=== PATIENT | female | born 1970 | race Two or more races ===

== ENCOUNTER 2017-12-17 17:43 | Inpatient (IN) | payer BC ==
[~2017-12-17] VITALS: Ht 170.2 cm; Wt 87.3 kg
[2017-12-17 18:20] LABS: MEAN CORPUSCULAR HEMOGLOBIN 30.1 pg (27.0-34.8); MEAN CORPUSCULAR HGB CONC 34.2 g/dL (32.4-35.8); MEAN CORPUSCULAR VOLUME 88.1 fL (80-100); MEAN PLATELET VOLUME 8.3 fL (7.4-10.4); PLATELET COUNT 311 x10^3/uL (130-400); RED BLOOD COUNT 4.77 x10^6/uL (3.82-5.3); RED CELL DISTRIBUTION WIDTH 12.7 % (9.6-15.2)
[2017-12-17] MEDS ORDERED: MORPHINE SULFATE 4 MG/ML, 1ML ONE (18:21)
[2017-12-17] MEDS ORDERED: ONDANSETRON ODT 4 MG ONE (18:21)
[2017-12-17 18:25] LABS: MICROSCOPIC AUTO
[2017-12-17 18:25] LABS: ALBUMIN 3.7 g/dL (3.4-5.0); CALCIUM 8.8 mg/dL (8.5-10.1); CHLORIDE 102 mmol/L (98-107)
[2017-12-17] MEDS ORDERED: ONDANSETRON ODT 4 MG PO ONE (18:30)
[2017-12-17] MEDS ORDERED: MORPHINE SULFATE 4 MG/ML, 1ML IVPush PRN (18:30)
[2017-12-17 18:31] LABS: CULTURE INDICATED? YES
[2017-12-17 18:31] LABS: ALANINE AMINOTRANSFERASE 43 U/L (12-78); ALKALINE PHOSPHATASE 95 U/L (45-117); BILIRUBIN,TOTAL 0.5 mg/dL (0.2-1.0); CREATININE 0.82 mg/dL (0.55-1.02); TOTAL PROTEIN 7.4 g/dL (6.4-8.2)
[2017-12-17 18:42] LABS: BASOPHILS # (AUTO) 0.02 x10^3/uL (0-0.1); BASOPHILS % (AUTO) 0 % (0-1); EOSINOPHILS # (AUTO) 0.09 x10^3/uL (0-0.4); EOSINOPHILS % (AUTO) 0 % (1-7); LYMPHOCYTES # (AUTO) 1.86 x10^3/uL (1-3.4); LYMPHOCYTES % (AUTO) 9 % (22-44); MD SCAN; MONOCYTES # (AUTO) 0.29 x10^3/uL (0.2-0.8); MONOCYTES % (AUTO) 2 % (2-9); NEUTROPHILS # (AUTO) 17.57 x10^3/uL (1.8-6.8); NEUTROPHILS % (AUTO) 89 % (42-75)
[2017-12-17 18:45] LABS: ANION GAP 13 mmol/L (5-15)
[2017-12-17] MEDS ORDERED: OMNIPAQUE 350 MG/ML, 100ML BOTTLE ONE (19:21)
[2017-12-17] MEDS ORDERED: SODIUM CHLORIDE 0.9% 1,000 ML IV ONE (20:25)
[2017-12-17] MEDS ORDERED: CEFTRIAXONE PMX 1GM/50ML 50 ML IVPB ONE (20:30)
[2017-12-17] MEDS ORDERED: SODIUM CHLORIDE FLUSH 10ML SYR IVF PRN (20:30)
[2017-12-17] MEDS ORDERED: CEFTRIAXONE PMX 1GM/50ML 50 ML ONE (20:34)
[2017-12-17] MEDS ORDERED: [UNRECOGNIZED DRUG - REMARK] (20:49)
[2017-12-17] MEDS ORDERED: METF500T27 PO (20:49)
[2017-12-17 21:50] VITALS: BP 153/89
[2017-12-17] MEDS ORDERED: LABETALOL 5MG/ML, 20ML IVPush PRN (22:30)
[2017-12-17] MEDS ORDERED: hydrALAzine 20 MG/ML, 1ML IVPush PRN (22:30)
[2017-12-17] MEDS ORDERED: morphine SULFATE 10 MG/ML, 1ML IVPush PRN (22:30)
[2017-12-17] MEDS ORDERED: BISACODYL 10 MG SUPP PR PRN (22:30)
[2017-12-17] MEDS ORDERED: CEFTRIAXONE PMX 1GM/50ML 50 ML IV ONE (22:30)
[2017-12-17] MEDS ORDERED: PROMETHAZINE 25 MG/ML, 1ML IM PRN (22:30)
[2017-12-17] MEDS ORDERED: ENALAPRILAT 1.25 MG/ML, 2ML IVPush PRN (22:30)
[2017-12-17] MEDS ORDERED: POLYETHYLENE GLYCOL 17 GM PACKET PO PRN (22:30)
[2017-12-17] MEDS ORDERED: ACETAMINOPHEN 325 MG TABLET PO PRN (22:30)
[2017-12-17] MEDS: HEPARIN 5,000 UNITS/ML, 1ML SQ SCH (22:50)
[2017-12-17] MEDS: SODIUM CHLORIDE 0.9% 1,000 ML IV SCH (22:50)
[2017-12-17 23:10] LABS: FREE T4 (FREE THYROXINE) 0.95 ng/dL (0.76-1.46); THYROID STIMULATING HORMONE 1.22 mIU/L (0.358-3.740)
[2017-12-17 23:29] LABS: HEMOGLOBIN A1C 6.7 % (4.2-6.3)
[2017-12-18 04:23] VITALS: BP 110/58
[2017-12-18 05:19] LABS: BASOPHILS # (AUTO) 0.03 x10^3/uL (0-0.1); BASOPHILS % (AUTO) 0 % (0-1); EOSINOPHILS # (AUTO) 0.12 x10^3/uL (0-0.4); EOSINOPHILS % (AUTO) 2 % (1-7); LYMPHOCYTES # (AUTO) 1.91 x10^3/uL (1-3.4); LYMPHOCYTES % (AUTO) 22 % (22-44); MD NO; MEAN CORPUSCULAR HEMOGLOBIN 30.4 pg (27.0-34.8); MEAN CORPUSCULAR HGB CONC 34.1 g/dL (32.4-35.8); MEAN CORPUSCULAR VOLUME 88.9 fL (80-100); MEAN PLATELET VOLUME 8.3 fL (7.4-10.4); MONOCYTES # (AUTO) 0.44 x10^3/uL (0.2-0.8); MONOCYTES % (AUTO) 5 % (2-9); NEUTROPHILS % (AUTO) 71 % (42-75); PLATELET COUNT 258 x10^3/uL (130-400); RED BLOOD COUNT 4.36 x10^6/uL (3.82-5.3); RED CELL DISTRIBUTION WIDTH 12.8 % (9.6-15.2)
[2017-12-18 05:34] LABS: ANION GAP 8 mmol/L (5-15); CALCIUM 8.3 mg/dL (8.5-10.1); CHLORIDE 105 mmol/L (98-107)
[2017-12-18 05:40] LABS: ALANINE AMINOTRANSFERASE 31 U/L (12-78); ALKALINE PHOSPHATASE 66 U/L (45-117); BILIRUBIN,TOTAL 0.4 mg/dL (0.2-1.0); CHOL/HDL RATIO 8.7; CHOLESTEROL, TOTAL 217 mg/dL (140-239); CREATININE 0.67 mg/dL (0.55-1.02); HDL CHOL % 12 % (28-40); HDL CHOLESTEROL (DIRECT) 25 mg/dL (40-60); TOTAL PROTEIN 6.4 g/dL (6.4-8.2); TRIGLYCERIDES 580 mg/dL (50-200)
[2017-12-18] MEDS: HEPARIN 5,000 UNITS/ML, 1ML SQ SCH ×2 (06:18→14:30)
[2017-12-18] MEDS: SODIUM CHLORIDE 0.9% 1,000 ML IV SCH (06:18)
[2017-12-18] MEDS: INSULIN LISPRO 100 UNITS/ML, PEN SQ-INSULIN SCH ×3 (06:21→16:00)
[2017-12-18 07:41] VITALS: BP 124/69
[2017-12-18] MEDS: SENNA/DOCUSATE TABLET PO SCH (08:51)
[2017-12-18] MEDS: OMEPRAZOLE 20 MG CAPSULE.DR PO SCH (08:51)
[2017-12-18] MEDS ORDERED: MAGNESIUM SULFATE PMX 2GM/50ML 50 ML IV ONE (10:00)
[2017-12-18 15:29] VITALS: BP 134/76
[2017-12-18] MEDS ORDERED: CEFTRIAXONE PMX 2GM/50ML 50 ML IV SCH (19:00)
[2017-12-18] MEDS ORDERED: CEFTRIAXONE 2 GM in DEXTROSE 5% 50 ML IV SCH (19:00)
[2017-12-18 20:30] VITALS: BP 134/80
[2017-12-19] MEDS: HEPARIN 5,000 UNITS/ML, 1ML SQ SCH ×3 (00:02→14:30)
[2017-12-19] MEDS: INSULIN LISPRO 100 UNITS/ML, PEN SQ-INSULIN SCH ×3 (01:03→11:00)
[2017-12-19 02:20] VITALS: BP 109/66
[2017-12-19 05:21] LABS: ALBUMIN 2.8 g/dL (3.4-5.0); ANION GAP 9 mmol/L (5-15); CALCIUM 7.7 mg/dL (8.5-10.1); CHLORIDE 107 mmol/L (98-107); CREATININE 0.68 mg/dL (0.55-1.02)
[2017-12-19 05:24] LABS: BASOPHILS # (AUTO) 0.04 x10^3/uL (0-0.1); BASOPHILS % (AUTO) 1 % (0-1); EOSINOPHILS # (AUTO) 0.18 x10^3/uL (0-0.4); EOSINOPHILS % (AUTO) 3 % (1-7); LYMPHOCYTES % (AUTO) 40 % (22-44); MD NO; MEAN CORPUSCULAR HEMOGLOBIN 30.7 pg (27.0-34.8); MEAN CORPUSCULAR HGB CONC 34.7 g/dL (32.4-35.8); MEAN CORPUSCULAR VOLUME 88.6 fL (80-100); MEAN PLATELET VOLUME 8.2 fL (7.4-10.4); MONOCYTES # (AUTO) 0.42 x10^3/uL (0.2-0.8); MONOCYTES % (AUTO) 7 % (2-9); NEUTROPHILS # (AUTO) 3.04 x10^3/uL (1.8-6.8); NEUTROPHILS % (AUTO) 50 % (42-75); PLATELET COUNT 283 x10^3/uL (130-400); RED BLOOD COUNT 4.37 x10^6/uL (3.82-5.3); RED CELL DISTRIBUTION WIDTH 12.4 % (9.6-15.2)
[2017-12-19 05:26] LABS: ALKALINE PHOSPHATASE 78 U/L (45-117); BILIRUBIN,TOTAL 0.4 mg/dL (0.2-1.0)
[2017-12-19 05:37] LABS: TOTAL PROTEIN 6.2 g/dL (6.4-8.2)
[2017-12-19 05:47] LABS: ALANINE AMINOTRANSFERASE 45 U/L (12-78)
[2017-12-19 07:11] VITALS: BP 125/79
[2017-12-19] MEDS: OMEPRAZOLE 20 MG CAPSULE.DR PO SCH (07:15)
[2017-12-19] MEDS: SENNA/DOCUSATE TABLET PO SCH (08:49)
[2017-12-19] MEDS ORDERED: CEFD300C37 PO (13:04)
[2017-12-19 13:59] VITALS: BP 150/84
[2017-12-19] MEDS ORDERED: PNEUMOCOCCAL 23 VACCINE IM-VACC ONE (14:00)
== END 2017-12-19 14:53 | disposition home or self-care (01) | DRG 872 ==
LOC: ED 21:08 → EDIP 21:12 → 4NOR 21:38 → DCLOUNGE 12-19 14:41
PROVIDERS: ADMIT Internal Medicine; ATTEND Internal Medicine
DX: A41.9 Sepsis, unspecified organism (principal); K76.0 Fatty (change of) liver, not elsewhere classified; N10 Acute pyelonephritis; D25.9 Leiomyoma of uterus, unspecified; B96.89 Other specified bacterial agents as the cause of diseases classified elsewhere; E11.9 Type 2 diabetes mellitus without complications; K21.9 Gastro-esophageal reflux disease without esophagitis; N83.01 Follicular cyst of right ovary; N83.209 Unspecified ovarian cyst, unspecified side
CPT/HCPCS: 36415; 74177; 76856; 80053; 80061; 81001; 82962; 83036; 83735; 84439; 84443; 84703; 85025; 87040; 87077; 87086; 87186; 90732; 96365; 96375; J0696; J1644; Q9967; J1815; J3475; J7030

== ENCOUNTER 2018-06-13 21:43 | Emergency (ER) | payer BC ==
[~2018-06-13] VITALS: Ht 170.2 cm; Wt 83.0 kg
[~2018-06-13 21:43] MED LIST: CEFD300C37 PO; METF500T27 PO; [UNRECOGNIZED DRUG - REMARK]
[2018-06-13] MEDS ORDERED: SODIUM CHLORIDE FLUSH 10ML SYR IVF ONE (22:00)
[2018-06-13] MEDS ORDERED: SODIUM CHLORIDE 0.9% 1,000ML IVBOLUS ONE (22:00)
[2018-06-13] MEDS ORDERED: HYDROmorphone 2 MG/ML, 1ML IVPush PRN (22:00)
[2018-06-13] MEDS ORDERED: ONDANSETRON 2MG/ML, 2ML IVPush ONE (22:00)
[2018-06-13] MEDS ORDERED: HYDROmorphone 2 MG/ML, 1ML ONE (22:14)
[2018-06-13] MEDS ORDERED: ONDANSETRON 2MG/ML, 2ML ONE (22:14)
[2018-06-13 22:51] LABS: MEAN CORPUSCULAR HEMOGLOBIN 29.9 pg (27.0-34.8); MEAN CORPUSCULAR HGB CONC 34.3 g/dL (32.4-35.8); MEAN PLATELET VOLUME 8.3 fL (7.4-10.4); PLATELET COUNT 329 x10^3/uL (130-400); RED BLOOD COUNT 4.87 x10^6/uL (3.82-5.3); RED CELL DISTRIBUTION WIDTH 13.2 % (9.6-15.2)
[2018-06-13 23:04] LABS: ALANINE AMINOTRANSFERASE 40 U/L (12-78); ALBUMIN 3.1 g/dL (3.4-5.0); ANION GAP 10 mmol/L (5-15); CALCIUM 8.4 mg/dL (8.5-10.1); CHLORIDE 102 mmol/L (98-107); CREATININE 0.66 mg/dL (0.55-1.02)
[2018-06-13 23:08] LABS: ALKALINE PHOSPHATASE 99 U/L (45-117); BILIRUBIN,TOTAL 0.3 mg/dL (0.2-1.0); TOTAL PROTEIN 7.4 g/dL (6.4-8.2)
[2018-06-13 23:24] LABS: BASOPHILS # (AUTO) 0.02 x10^3/uL (0-0.1); BASOPHILS % (AUTO) 0 % (0-1); EOSINOPHILS # (AUTO) 0.14 x10^3/uL (0-0.4); EOSINOPHILS % (AUTO) 1 % (1-7); LYMPHOCYTES # (AUTO) 1.18 x10^3/uL (1-3.4); LYMPHOCYTES % (AUTO) 7 % (22-44); MD SCAN; MONOCYTES # (AUTO) 0.83 x10^3/uL (0.2-0.8); MONOCYTES % (AUTO) 5 % (2-9); NEUTROPHILS # (AUTO) 15.95 x10^3/uL (1.8-6.8); NEUTROPHILS % (AUTO) 88 % (42-75)
[2018-06-13 23:26] LABS: TROPONIN I < 0.015 ng/mL (0.000-0.045)
[2018-06-13] MEDS ORDERED: OMNIPAQUE 350 MG/ML, 100ML BOTTLE ONE (23:33)
[2018-06-14 00:18] LABS: MICROSCOPIC AUTO
[2018-06-14 00:19] LABS: CULTURE INDICATED? YES
[2018-06-14 01:14] VITALS: BP 108/70
== END 2018-06-14 01:27 | disposition home or self-care (01) ==
LOC: ED 22:42
DX: K29.00 Acute gastritis without bleeding (principal); E11.9 Type 2 diabetes mellitus without complications
CPT/HCPCS: 36415; 74177; 76700; 80053; 80307; 81001; 83690; 84484; 84703; 85025; 86677; 87086; 93005; 96361; 96374; 99285; J2405; J7030; Q9967

== ENCOUNTER 2018-06-24 08:06 | Emergency (ER) | payer BC ==
[~2018-06-24] VITALS: Ht 170.2 cm; Wt 83.0 kg
[2018-06-24] MEDS ORDERED: MECLIZINE CHEWABLE 25 MG TAB PO ONE (08:30)
[2018-06-24] MEDS ORDERED: SODIUM CHLORIDE 0.9% 1,000ML IVBOLUS ONE (08:30)
[2018-06-24] MEDS ORDERED: ONDANSETRON ODT 4 MG PO ONE (08:30)
[2018-06-24] MEDS ORDERED: ONDANSETRON ODT 4 MG ONE (08:50)
[2018-06-24] MEDS ORDERED: MECLIZINE CHEWABLE 25 MG TAB ONE (08:50)
[2018-06-24 08:55] LABS: BASOPHILS # (AUTO) 0.01 x10^3/uL (0-0.1); BASOPHILS % (AUTO) 0 % (0-1); EOSINOPHILS # (AUTO) 0.04 x10^3/uL (0-0.4); EOSINOPHILS % (AUTO) 0 % (1-7); LYMPHOCYTES % (AUTO) 11 % (22-44); MD NO; MEAN CORPUSCULAR HEMOGLOBIN 29.8 pg (27.0-34.8); MEAN CORPUSCULAR HGB CONC 34.4 g/dL (32.4-35.8); MEAN CORPUSCULAR VOLUME 86.7 fL (80-100); MEAN PLATELET VOLUME 8.2 fL (7.4-10.4); MONOCYTES # (AUTO) 0.32 x10^3/uL (0.2-0.8); MONOCYTES % (AUTO) 3 % (2-9); NEUTROPHILS # (AUTO) 10.61 x10^3/uL (1.8-6.8); NEUTROPHILS % (AUTO) 87 % (42-75); PLATELET COUNT 339 x10^3/uL (130-400); RED BLOOD COUNT 4.76 x10^6/uL (3.82-5.3); RED CELL DISTRIBUTION WIDTH 13.4 % (9.6-15.2)
[2018-06-24] MEDS ORDERED: METF500T17 PO (08:59)
[2018-06-24] MEDS ORDERED: OMEP-110 PO (08:59)
[2018-06-24 09:05] LABS: ALBUMIN 3.3 g/dL (3.4-5.0); ANION GAP 12 mmol/L (5-15); CALCIUM 8.6 mg/dL (8.5-10.1); CHLORIDE 102 mmol/L (98-107)
[2018-06-24 09:09] LABS: ALANINE AMINOTRANSFERASE 39 U/L (12-78); ALKALINE PHOSPHATASE 92 U/L (45-117); BILIRUBIN,TOTAL 0.3 mg/dL (0.2-1.0); CREATININE 0.76 mg/dL (0.55-1.02); TOTAL PROTEIN 7.2 g/dL (6.4-8.2)
[2018-06-24 09:30] LABS: MICROSCOPIC AUTO
[2018-06-24 09:32] LABS: CULTURE INDICATED? YES
[2018-06-24 10:40] VITALS: BP 109/51
== END 2018-06-24 10:43 | disposition home or self-care (01) ==
LOC: ED 09:20
DX: N30.90 Cystitis, unspecified without hematuria (principal); E11.9 Type 2 diabetes mellitus without complications
CPT/HCPCS: 36415; 70450; 80053; 81001; 85025; 87077; 87086; 96360; 99285; J7030; Q0162; 87186

== ENCOUNTER 2018-11-26 09:45 | Emergency (ER) | payer BC ==
[~2018-11-26] VITALS: Ht 170.2 cm; Wt 81.6 kg
[~2018-11-26 09:45] MED LIST changes: +METF500T17 PO; +OMEP-110 PO
--- NOTE | 2018-11-26 10:15 | NUR ---
PT AMBULATORY TO ROOM.
--- NOTE | 2018-11-26 10:42 | NUR ---
CO ABD PAIN W NAUSEA REPORTS TO THIS AM AND WAS SENT HERE [facility]A GIVEN AT [facility] WAS TOLD HAD A UTI ON TX OF RX GIVEN AT [facility]
[2018-11-26] MEDS ORDERED: HYDROmorphone 1 MG/ML, 1ML VIAL ONE (11:20)
[2018-11-26 11:29] LABS: BASOPHILS # (AUTO) 0.02 x10^3/uL (0-0.1); BASOPHILS % (AUTO) 0 % (0-1); EOSINOPHILS # (AUTO) 0.03 x10^3/uL (0-0.4); EOSINOPHILS % (AUTO) 0 % (1-7); LYMPHOCYTES # (AUTO) 1.13 x10^3/uL (1-3.4); LYMPHOCYTES % (AUTO) 16 % (22-44); MD NO; MEAN CORPUSCULAR HEMOGLOBIN 29.6 pg (27.0-34.8); MEAN CORPUSCULAR HGB CONC 33.9 g/dL (32.4-35.8); MEAN CORPUSCULAR VOLUME 87.2 fL (80-100); MONOCYTES % (AUTO) 4 % (2-9); NEUTROPHILS # (AUTO) 5.74 x10^3/uL (1.8-6.8); NEUTROPHILS % (AUTO) 80 % (42-75); PLATELET COUNT 261 x10^3/uL (130-400); RED BLOOD COUNT 4.99 x10^6/uL (3.82-5.3); RED CELL DISTRIBUTION WIDTH 13.4 % (9.6-15.2)
[2018-11-26] MEDS ORDERED: HYDROmorphone 2 MG/ML, 1ML IVPush PRN (11:30)
[2018-11-26] MEDS ORDERED: ONDANSETRON 2MG/ML, 2ML IVPush ONE (11:30)
[2018-11-26] MEDS ORDERED: SODIUM CHLORIDE FLUSH 10ML SYR IVF ONE (11:30)
[2018-11-26] MEDS ORDERED: ONDANSETRON 2MG/ML, 2ML ONE (11:34)
[2018-11-26 11:39] LABS: ALANINE AMINOTRANSFERASE 49 U/L (12-78); ALBUMIN 3.6 g/dL (3.4-5.0); ANION GAP 6 mmol/L (5-15); CALCIUM 8.8 mg/dL (8.5-10.1); CHLORIDE 107 mmol/L (98-107)
[2018-11-26 11:44] LABS: ALKALINE PHOSPHATASE 86 U/L (45-117); BILIRUBIN,TOTAL 0.2 mg/dL (0.2-1.0); TOTAL PROTEIN 6.8 g/dL (6.4-8.2)
[2018-11-26 12:22] VITALS: BP 135/77
--- NOTE | 2018-11-26 12:22 | NUR ---
URINE COLLECTED AND SENT TO LAB.
[2018-11-26 12:37] LABS: MICROSCOPIC INDICATED
[2018-11-26 13:07] LABS: CULTURE INDICATED? YES
== END 2018-11-26 14:23 | disposition home or self-care (01) ==
LOC: ED 13:20
DX: R10.84 Generalized abdominal pain (principal); R19.7 Diarrhea, unspecified; R11.0 Nausea
CPT/HCPCS: 36415; 76700; 80053; 81001; 83690; 84703; 85025; 87077; 87086; 87186; 96374; 99284; J1170

== ENCOUNTER 2020-01-19 12:31 | Emergency (ER) | payer BC, OTHER ==
[~2020-01-19] VITALS: Ht 167.6 cm; Wt 83.5 kg
[2020-01-19 12:45] VITALS: BP 147/82
--- NOTE | 2020-01-19 12:53 | NUR ---
PT A&OX4, RESP EVEN & UNLABORED, SPEECH CLEAR, SKIN WNL. PT HOLDING IV TUBING TO LT EYE; EMS NS IRRIGATION CONTINUING.
[2020-01-19] MEDS ORDERED: PANT40TA5 PO (12:56)
--- NOTE | 2020-01-19 13:05 | NUR ---
VISUAL ACCUITY DONE: LT EYE - BLURRED VISION, UNABLE TO READ CHART. RT EYE: 20/100. DENIES GLASSES/CONTACT USE.
[2020-01-19] MEDS ORDERED: FLUORESCEIN OPHTHALMIC 1 MG STRIP ONE (13:46)
--- NOTE | 2020-01-19 14:19 | NUR ---
Left eye numbed and ana laura lens applied and irrigation restarted. Pt tolerating well.
--- NOTE | 2020-01-19 15:33 | NUR ---
EYE IRRIGATION CONTINUING.
--- NOTE | 2020-01-19 16:17 | NUR ---
EYE IRRIGATION DC'D PER PROVIDER. PT DENIES EYE PAIN, STATES EYE "FEELS WARM". VISUAL ACCUITY RECHECKED: LT 20/30, RT 20/40.
== END 2020-01-19 16:26 | disposition home or self-care (01) ==
LOC: ED 16:00
DX: H10.212 Acute toxic conjunctivitis, left eye (principal); E11.9 Type 2 diabetes mellitus without complications; Z77.098 Contact with and (suspected) exposure to other hazardous, chiefly nonmedicinal, chemicals
CPT/HCPCS: 99283

== ENCOUNTER 2020-06-26 17:24 | Emergency (ER) | payer BC, OTHER ==
[~2020-06-26] VITALS: Ht 170.2 cm; Wt 86.4 kg
[~2020-06-26 17:24] MED LIST changes: +PANT40TA6 PO
--- NOTE | 2020-06-26 19:30 | NUR ---
LLE PAIN STARTED WHILE GOING UP STAIRS AT WORK 12 NOON TODAY. FELT LIKE A PULLING PAIN AND A CRAMP. HX OF PREVIOUS KNEE SURGERY. CMS INTACT ICE PACK(S) APPLIED
--- NOTE | 2020-06-26 20:01 | NUR ---
RECEIVED REPORT FROM REMIGIO HERRERA TO ASSUME CARE OF PT. DR. MONET AT TO EVAL PT. AT THIS TIME.
[2020-06-26] MEDS ORDERED: HYDROmorphone 1 MG/ML, 1ML INJ IM ONE (20:30)
[2020-06-26] MEDS ORDERED: HYDROmorphone 1 MG/ML, 1ML INJ ONE (20:31)
--- NOTE | 2020-06-26 20:43 | NUR ---
BRANDY AT FOR SPLINT PLACEMENT. PT. DECLINES CRUTCHES SHE STATES SHE HAS THEM AT HOME.
--- NOTE | 2020-06-26 20:53 | NUR ---
oFFER CRUCHES TO PT, PT STATES "I HAVE SOME AT HOME".
[2020-06-26 21:16] VITALS: BP 141/95
== END 2020-06-26 21:17 | disposition home or self-care (01) ==
LOC: ED 20:25
DX: G89.11 Acute pain due to trauma (principal); M25.562 Pain in left knee; E11.9 Type 2 diabetes mellitus without complications; X58.XXXA Exposure to other specified factors, initial encounter; Y93.89 Activity, other specified; Y92.69 Other specified industrial and construction area as the place of occurrence of the external cause; Y99.0 Civilian activity done for income or pay
CPT/HCPCS: 29505; 73564; 96372; 99283; J1170

== ENCOUNTER 2020-07-14 14:18 | Emergency (ER) | payer BC ==
[~2020-07-14] VITALS: Ht 170.2 cm; Wt 87.0 kg
--- NOTE | 2020-07-14 14:44 | NUR ---
ELECTRONIC SCALE TESTER NOTE: PT WHEELED TO ROOM 34 FROM LOBBY
--- NOTE | 2020-07-14 15:14 | NUR ---
PT. WAS BROUGHT STRAIGHT BACK FROM TRIAGE. IV ACCESS ESTABLISHED. LABS COLLECTED. PT. WAS PLACED ON THE CRIME INVESTIGATOR SPECIAL AGENT AND IS IN A SINUS RHYTHM. PT. REMAINS A & O X 4 WITH A GCS OF 15. PT. STATES SHE HAS COVID 19. SYMPTOMS OF COUGH, CONGESTION, BODY ACHES, FEVER, NAUSEA, VOMITING AND DIARRHEA STARTED LAST FRIDAY. PT.'S BREATH SOUNDS ARE DIMINISHED IN THE BASES. RESPIRATIONS ARE EUPNEIC WITH SYMMETRICAL CHEST RISE AND FALL. NO JVD NOTED. PT.'S CAP REFILL IS BRISK, LESS THAN 2 SECONDS. HER ABD. IS SOFT AND NON-TENDER WITH BS + X 4 QUADS. NS IS INFUSING. THE HOB IS ELEVATED GREATER THAN 30 DEGREES. THE PT. WAS GIVEN A BLANKET AND THE SIDERAILS REMAIN UP X 2 WITH THE CALL LIGHT IN PLACE. REPORT WAS GIVEN TO THE PRIMARY RN JUDITH.
[2020-07-14] MEDS ORDERED: ACETAMINOPHEN 500 MG TABLET PO ONE (15:30)
[2020-07-14] MEDS ORDERED: ONDANSETRON 2MG/ML, 2ML IVPush ONE (15:30)
[2020-07-14] MEDS ORDERED: SODIUM CHLORIDE FLUSH 10ML SYR IVF ONE (15:30)
[2020-07-14] MEDS ORDERED: SODIUM CHLORIDE 0.9% 1,000ML IVBOLUS ONE (15:30)
[2020-07-14] MEDS ORDERED: ONDANSETRON 2MG/ML, 2ML ONE (15:49)
[2020-07-14] MEDS ORDERED: ACETAMINOPHEN 500 MG TABLET ONE (15:49)
[2020-07-14 15:58] LABS: BASOPHILS % (AUTO) 0 % (0-1); EOSINOPHILS % (AUTO) 0 % (1-7); LYMPHOCYTES % (AUTO) 23 % (22-44); MEAN CORPUSCULAR HEMOGLOBIN 28.8 pg (27.0-34.8); MEAN PLATELET VOLUME 7.8 fL (7.4-10.4); MONOCYTES % (AUTO) 8 % (2-9); NEUTROPHILS % (AUTO) 69 % (42-75); PLATELET COUNT 204 x10^3/uL (130-400); RED BLOOD COUNT 5.24 x10^6/uL (3.82-5.3)
--- NOTE | 2020-07-14 15:58 | NUR ---
PATIENT RESTING IN GURNEY, CONNECTED TO TOOL GRINDING MACHINE OPERATOR, MEDICATED PER eMAR, CALL LIGHT WITHIN REACH. ESTATE TAX EXAMINER AT BEDSIDE DOING EKG.
--- NOTE | 2020-07-14 15:59 | NUR ---
FRONTLOAD DRIVER NOTE: TEENA KASPER, PHONE [phone]. REQUESTS TO BE PATIENT'S POINT OF CONTACT FOR UPDATES.
[2020-07-14 16:05] LABS: MD NO
[2020-07-14 16:07] LABS: ALANINE AMINOTRANSFERASE 52 U/L (12-78); ALBUMIN 3.3 g/dL (3.4-5.0); ANION GAP 6 mmol/L (5-15); CALCIUM 8.4 mg/dL (8.5-10.1); CHLORIDE 107 mmol/L (98-107); CREATININE 0.65 mg/dL (0.55-1.02)
[2020-07-14 16:09] LABS: ALKALINE PHOSPHATASE 130 U/L (45-117); BILIRUBIN,TOTAL 0.3 mg/dL (0.2-1.0); TOTAL PROTEIN 7.3 g/dL (6.4-8.2)
[2020-07-14] MEDS ORDERED: DEXAMETHASONE 4 MG/ML, 1ML IVPush ONE (16:30)
[2020-07-14 17:38] VITALS: BP 118/59
[2020-07-14] MEDS ORDERED: DEXAMETHASONE 4 MG/ML, 1ML ONE (17:42)
--- NOTE | 2020-07-14 17:55 | NUR ---
Patient given discharge instructions and prescription and they have confirmed that they understand the instructions. All patient belongings gathered and taken with patient. Patient ambulatory with steady gait from ED to private vehicle.
[2020-07-14] MEDS ORDERED: DEXAMETHASONE 4 MG TABLET PO ONE (18:00)
== END 2020-07-14 17:56 | disposition home or self-care (01) ==
LOC: ED 16:18
DX: U07.1 COVID-19 (principal); B34.9 Viral infection, unspecified; K52.9 Noninfective gastroenteritis and colitis, unspecified; J06.9 Acute upper respiratory infection, unspecified; R50.9 Fever, unspecified; R11.2 Nausea with vomiting, unspecified; R05 Cough; R06.02 Shortness of breath; M79.10 Myalgia, unspecified site; R53.83 Other fatigue; E11.9 Type 2 diabetes mellitus without complications
CPT/HCPCS: 36415; 71045; 80053; 83605; 84145; 85025; 87040; 93005; 96361; 96374; 99285; J2405; J7030

== ENCOUNTER 2020-07-17 15:14 | Emergency (ER) | payer BC ==
[~2020-07-17] VITALS: Ht 170.2 cm; Wt 85.0 kg
--- NOTE | 2020-07-17 16:25 | NUR ---
Pt is Covid +. Fevers, cough. 99f on assessment
[2020-07-17] MEDS ORDERED: KETOROLAC 30 MG/1 ML ONE (16:55)
[2020-07-17] MEDS ORDERED: SODIUM CHLORIDE 0.9% 1,000ML IVBOLUS ONE (17:00)
[2020-07-17] MEDS ORDERED: KETOROLAC 30 MG/1 ML IVPush ONE (17:00)
--- NOTE | 2020-07-17 17:11 | NUR ---
Bolus infusing, VS updated.
[2020-07-17 17:13] LABS: ALBUMIN 3.2 g/dL (3.4-5.0); ANION GAP 7 mmol/L (5-15); CALCIUM 8.3 mg/dL (8.5-10.1); CHLORIDE 103 mmol/L (98-107)
[2020-07-17 17:20] LABS: D-DIMER (DIC) 0.28 ug/mlFEU (0.00-0.52)
[2020-07-17 17:21] LABS: ALANINE AMINOTRANSFERASE 36 U/L (12-78); ALKALINE PHOSPHATASE 122 U/L (45-117); BILIRUBIN,TOTAL 0.5 mg/dL (0.2-1.0); C-REACTIVE PROTEIN, QUANT 8.54 mg/dL (0.02-0.49); CREATININE 0.73 mg/dL (0.55-1.02); TOTAL PROTEIN 7.2 g/dL (6.4-8.2)
[2020-07-17 17:37] LABS: BASOPHILS % (AUTO) 0 % (0-1); EOSINOPHILS % (AUTO) 0 % (1-7); LYMPHOCYTES % (AUTO) 7 % (22-44); MEAN CORPUSCULAR HEMOGLOBIN 28.2 pg (27.0-34.8); MEAN CORPUSCULAR HGB CONC 33.4 g/dL (32.4-35.8); MEAN PLATELET VOLUME 7.6 fL (7.4-10.4); MONOCYTES % (AUTO) 4 % (2-9); NEUTROPHILS % (AUTO) 89 % (42-75); PLATELET COUNT 263 x10^3/uL (130-400); RED CELL DISTRIBUTION WIDTH 15.3 % (9.6-15.2)
[2020-07-17] MEDS ORDERED: FILTER 0.22 MICRON IV ONE (18:00)
--- NOTE | 2020-07-17 18:03 | NUR ---
Pharm called, 25 min for Bamlanivimab oyster picker.
[2020-07-17 18:06] LABS: MD SCAN
[2020-07-17] MEDS ORDERED: BAMLANIVIMAB 700 MG in SODIUM CHLORIDE 0.9% 180 ML IVPB ONE (18:30)
--- NOTE | 2020-07-17 18:55 | NUR ---
Report to NOC RN
[2020-07-17] MEDS ORDERED: HYDROcodone/APAP 5/325 TABLET ONE (20:13)
[2020-07-17] MEDS ORDERED: HYDROcodone/APAP 5/325 TABLET PO ONE (20:30)
[2020-07-17 22:03] VITALS: BP 163/67
--- NOTE | 2020-07-17 22:45 | NUR ---
PT HAS FEVER 101.2 PRIOR TO DISCHARGE AND STILL COMPLAINING OF LEG PAIN. MD NOTIFIED. NO NEW ORDERS. TOLD TO TAKE IBUPROFEN AND TYLENOL AT HOME. RN TOLD DAUGHTER, , AND PATIENT DISCHARGE INSTRUCTIONS. INFORMED TO KEEP HYDRATED AND WATCH FOR WORSENING BREATHING. USE TYLENOL AND IBUPROFEN FOR FEVER MANAGEMENT. IF PT DECLINES AND DOESNT IMPROVE, INSTRUCTED TO RETURN TO ED. FAMILY AND PATIENT VERBALIZED UNDERSTANDING.
== END 2020-07-17 23:06 | disposition home or self-care (01) ==
LOC: ED 23:00
DX: J18.0 Bronchopneumonia, unspecified organism (principal); E11.9 Type 2 diabetes mellitus without complications; I51.7 Cardiomegaly; R94.31 Abnormal electrocardiogram [ECG] [EKG]
CPT/HCPCS: 36415; 71045; 80053; 82728; 83605; 83615; 84145; 85025; 85049; 85379; 85384; 85610; 85730; 86140; 87040; 93005; 96361; 96365; 96366; 96375; 99285; J1885; J7030; J7050; Q2039

== ENCOUNTER 2020-07-20 07:45 | Emergency (ER) | payer BC ==
[~2020-07-20] VITALS: Ht 170.2 cm; Wt 85.5 kg
--- NOTE | 2020-07-20 08:16 | NUR ---
GIVEN UA, OOB TO BATHROOM GAIT STEAD.
--- NOTE | 2020-07-20 08:18 | NUR ---
PT STS WAS SICK W COVID 15 POPE AGO.
[2020-07-20 08:28] LABS: BASOPHILS % (AUTO) 0 % (0-1); EOSINOPHILS % (AUTO) 0 % (1-7); LYMPHOCYTES % (AUTO) 23 % (22-44); MEAN CORPUSCULAR HEMOGLOBIN 29.3 pg (27.0-34.8); MEAN CORPUSCULAR HGB CONC 34.1 g/dL (32.4-35.8); MEAN PLATELET VOLUME 7.2 fL (7.4-10.4); MONOCYTES % (AUTO) 4 % (2-9); NEUTROPHILS % (AUTO) 72 % (42-75); PLATELET COUNT 429 x10^3/uL (130-400); RED BLOOD COUNT 4.84 x10^6/uL (3.82-5.3); RED CELL DISTRIBUTION WIDTH 15.3 % (9.6-15.2)
[2020-07-20 08:32] LABS: MD NO
[2020-07-20 08:37] LABS: ALBUMIN 3.1 g/dL (3.4-5.0); ANION GAP 8 mmol/L (5-15); CALCIUM 8.6 mg/dL (8.5-10.1); CHLORIDE 110 mmol/L (98-107)
[2020-07-20 08:42] LABS: ALANINE AMINOTRANSFERASE 34 U/L (12-78); ALKALINE PHOSPHATASE 156 U/L (45-117); BILIRUBIN,TOTAL 0.2 mg/dL (0.2-1.0); CREATININE 0.85 mg/dL (0.55-1.02); TOTAL PROTEIN 7.7 g/dL (6.4-8.2)
[2020-07-20 08:43] LABS: MICROSCOPIC INDICATED
[2020-07-20 11:20] VITALS: BP 134/78
== END 2020-07-20 11:22 | disposition home or self-care (01) ==
LOC: ED 08:06
DX: R30.0 Dysuria (principal); R10.30 Lower abdominal pain, unspecified; E11.9 Type 2 diabetes mellitus without complications
CPT/HCPCS: 36415; 80053; 81001; 85025; 99283

== ENCOUNTER 2021-01-21 08:19 | Emergency (ER) | payer BC ==
[~2021-01-21] VITALS: Ht 170.2 cm; Wt 85.8 kg
--- NOTE | 2021-01-21 08:39 | NUR ---
ASSUMED CARE OF PT. SHE WALKED TO/BACK TO RESTROOM W/O INCIDENT, STEADY GAIT. PT C/O OF R MID SIDED BACK PAIN, DENIES NUMBNESS AND TINGLING.
[2021-01-21] MEDS ORDERED: KETOROLAC 30 MG/1 ML IM ONE (09:00)
[2021-01-21] MEDS ORDERED: PHENAZOPYRIDINE 200 MG TABLET PO ONE (09:00)
[2021-01-21] MEDS ORDERED: PHENAZOPYRIDINE 200 MG TABLET ONE (09:01)
[2021-01-21] MEDS ORDERED: KETOROLAC 30 MG/1 ML ONE (09:01)
--- NOTE | 2021-01-21 09:04 | NUR ---
SBAR REPORT GIVEN TO SENTHIL FLOOD. PT HAS ARRIVED, PROVIDED URINE SAMPLE, ELEK CASTRO.
--- NOTE | 2021-01-21 09:10 | NUR ---
REPORT FROM JONATHAN, ASSUME CARE OF PT AT THIS TIME. PT MEDICATED PER ERP ORDER FOR DYSURIA AND PAIN RATED 9/10. URINE COLLECTED/SENT TO LAB. WARM BLANKET PROVIDED, CALL LIGHT WITHIN REACH. PT AND FAMILY UPDATED ON POC.
[2021-01-21 09:17] LABS: MICROSCOPIC AUTO
[2021-01-21 09:33] LABS: BASOPHILS % (AUTO) 1 % (0-1); EOSINOPHILS % (AUTO) 2 % (1-7); LYMPHOCYTES % (AUTO) 22 % (22-44); MEAN CORPUSCULAR HEMOGLOBIN 30.2 pg (27.0-34.8); MEAN CORPUSCULAR HGB CONC 34.3 g/dL (32.4-35.8); MEAN PLATELET VOLUME 7.8 fL (7.4-10.4); MONOCYTES % (AUTO) 5 % (2-9); NEUTROPHILS % (AUTO) 71 % (42-75); PLATELET COUNT 263 x10^3/uL (130-400); RED BLOOD COUNT 4.73 x10^6/uL (3.82-5.3); RED CELL DISTRIBUTION WIDTH 14.1 % (9.6-15.2)
[2021-01-21 09:36] LABS: MD NO
[2021-01-21 09:44] LABS: ALBUMIN 3.6 g/dL (3.4-5.0); ANION GAP 7 mmol/L (5-15); CALCIUM 8.6 mg/dL (8.5-10.1); CHLORIDE 105 mmol/L (98-107); CREATININE 0.56 mg/dL (0.55-1.02)
--- NOTE | 2021-01-21 10:09 | NUR ---
ALL RESULTS BACK, PT FOR RECHECK.
[2021-01-21 10:53] VITALS: BP 121/61
== END 2021-01-21 11:03 | disposition home or self-care (01) ==
LOC: ED 09:20
DX: N30.00 Acute cystitis without hematuria (principal); Z91.040 Latex allergy status
CPT/HCPCS: 36415; 80048; 81001; 82040; 84703; 85025; 87086; 96372; 99283; J1885